=== PATIENT | female | born 1975 ===

== ENCOUNTER 2021-07-06 20:24 | Emergency (ER) | payer OTHER ==
[2021-07-06] MEDS ORDERED: IBUPROFEN 400 MG TAB ONE (23:10)
--- NOTE | 2021-07-07 00:02 | ER ---
Nurse's Notes [facility] Name: Josephine Gong Age: 45 yrs Sex: Female : 1975 Arrival Date: 07/06/2021 Time: 20:28 Bed 11 Private MD: Diagnosis: Presentation: 07/06 21:08 Chief complaint: Patient states: I was trying to climb into the back of my truck. I jb4 lost my footing and fell . My foot landed firmly on the ground and I feel like I jammed my knee. Coronavirus screen: At this time, the client does not indicate any symptoms associated with coronavirus-19. Ebola Screen: No symptoms or risks identified at this time. Initial Sepsis Screen: Does the patient meet any 2 criteria? No. Patient's initial sepsis screen is negative. Does the patient have a suspected source of infection? No. Patient's initial sepsis screen is negative. Risk Assessment: Do you want to hurt yourself or someone else? Patient reports no desire to harm self or others. Onset of symptoms was July 06, 2021. Transition of care: patient was not received from another setting of care. 21:08 Method Of Arrival: Wheelchair jb4 21:08 Acuity: ALYSON 4 jb4 Historical: - Allergies: 21:10 No Known Allergies; jb4 - Home Meds: 21:10 None [Active]; jb4 - PMHx: 21:10 None; jb4 - PSHx: 21:10 None; jb4 - Immunization history:: Adult Immunizations up to date. - Social history:: Smoking status: Reported history of juuling and/or vaping. Patient uses alcohol, occasionally. Patient/guardian denies using street drugs. Screenin:54 Abuse screen: Denies threats or abuse. Denies injuries from another. Nutritional lp1 screening: No deficits noted. Tuberculosis screening: No symptoms or risk factors identified. Fall Risk None identified. Assessment: 21:50 General: Appears uncomfortable, Behavior is appropriate for age. Pain: Complains of lp1 pain in lateral aspect of right knee and medial aspect of right knee Aggravated by weight bearing. Neuro: Level of Consciousness is awake, alert, obeys commands. Cardiovascular: Patient's skin is warm and dry. Respiratory: Respiratory effort is even, unlabored. GI: No signs and/or symptoms were reported involving the gastrointestinal system. : No signs and/or symptoms were reported regarding the genitourinary system. EENT: No signs and/or symptoms were reported regarding the EENT system. Derm: Skin is pink, warm \T\ dry. Musculoskeletal: Circulation, motion, and sensation intact. Reports pain in lateral aspect of right knee and medial aspect of right knee. 23:59 Reassessment: Pt verbalizes frustration of her x-ray not being performed. X-ray called, jb4 X-ray verbalized intent to see this pt next. Tried to inform pt that x-ray was on the way. Pt left ED via wheelchair with significant other. Vital Signs: 21:08 BP 112 / 52; Pulse 66; Resp 18; Temp 98.6(TE); Pulse Ox 100% on R/A; Weight 68.04 kg jb4 (R); Height 5 ft. 1 in. (154.94 cm) (R); Pain 7/10; 21:08 Body Mass Index 28.34 (68.04 kg, 154.94 cm) jb4 ED Course: 20:28 Patient arrived in ED. ja2 21:10 Triage completed. jb4 21:10 Arm band placed on right wrist. jb4 21:50 Sonal Garcia RN is Primary Nurse. lp1 21:54 Patient has correct armband on for positive identification. lp1 22:47 Yoan Montero PA is PHCP. cp 22:47 Anant Gerard MD is Attending Physician. cp 23:59 No provider procedures requiring assistance completed. Patient did not have IV access jb4 during this emergency room visit. Administered Medications: 23:10 Drug: Ibuprofen 800 mg Route: PO; lp1 Medication: 21:54 VIS not applicable for this client. lp1 Outcome: 23:59 Eloped from patient exam room, after seeing physician Time discovered patient gone: June jb4 2021 at 00:01 23:59 Condition: unchanged 07/07 00:01 Patient left the ED. jb4 Signatures: Sonal Garcia, RN RN lp1 Yoan Montero PA PA cp Bryson, James, RN RN jb4 Leena Rodriguez ja2 Corrections: (The following items were deleted from the chart) 07/06 21:54 21:50 Pain: Complains of pain in lateral aspect of right knee and medial aspect of lp1 right knee lp1
--- NOTE | 2021-07-07 00:02 | EDPHYS ---
Physician Documentation [facility] Name: Josephine Gong Age: 45 yrs Sex: Female : 1975 Arrival Date: 07/06/2021 Time: 20:28 Bed 11 Private MD: ED Physician Anant Gerard HPI: 07/06 23:15 This 45 yrs old Female presents to ER via Wheelchair with complaints of Knee Injury. cp 23:15 The patient presents with pain, that is acute. The complaints affect the lateral aspect cp of right knee, lateral aspect of right foot and posterior aspect of right knee. 23:15 Context: resulted from a mis-step, while stepping out of back of truck, patient reports cp she lost her balance and heel struck ground with stiffened right leg. Onset: The symptoms/episode began/occurred today. Historical: - Allergies: 21:10 No Known Allergies; jb4 - Home Meds: 21:10 None [Active]; jb4 - PMHx: 21:10 None; jb4 - PSHx: 21:10 None; jb4 - Immunization history:: Adult Immunizations up to date. - Social history:: Smoking status: Reported history of juuling and/or vaping. Patient uses alcohol, occasionally. Patient/guardian denies using street drugs. ROS: 23:20 Constitutional: Negative for body aches, chills, fever, poor PO intake. cp 23:20 Neck: Negative for pain with movement, pain at rest. cp 23:20 Back: Negative for pain at rest, pain with movement. 23:20 MS/extremity: Positive for pain, tenderness, of the posterior aspect of right knee and proximal fibula and right heel. 23:20 Skin: Negative for cellulitis, rash. 23:20 Neuro: Negative for altered mental status, headache, weakness. 23:20 All other systems are negative. Exam: 23:25 Constitutional: The patient appears in no acute distress, alert, awake, non-toxic, well cp developed, well nourished. 23:25 Head/Face: Normocephalic, atraumatic. cp 23:25 Cardiovascular: Rate: normal, Pulses: Pulses are 2+ in right dorsalis pedis artery. 23:25 Respiratory: the patient does not display signs of respiratory distress, Respirations: normal, no use of accessory muscles, no retractions, labored breathing, is not present. 23:25 Abdomen/GI: Exam negative for discomfort, distension, guarding, Inspection: abdomen appears normal. 23:25 Back: pain, is absent, ROM is normal. 23:25 Musculoskeletal/extremity: Extremities: grossly normal except: noted in the posterior knee and proximal fibula: pain, tenderness, There is no evidence of decreased ROM, deformity, noted in the right heel: pain, tenderness, no evidence of deformity, the right foot and right leg Sensation intact. 23:25 Skin: cellulitis, is not appreciated, no rash present. Vital Signs: 21:08 BP 112 / 52; Pulse 66; Resp 18; Temp 98.6(TE); Pulse Ox 100% on R/A; Weight 68.04 kg jb4 (R); Height 5 ft. 1 in. (154.94 cm) (R); Pain 7/10; 21:08 Body Mass Index 28.34 (68.04 kg, 154.94 cm) jb4 MDM: 23:01 Patient medically screened. cp Administered Medications: 23:10 Drug: Ibuprofen 800 mg Route: PO; lp1 Disposition: 07/07 05:39 Co-signature as Attending Physician, Anant Gerard MD. [email or web address] Disposition Summary: 07/07/21 00:01 Eloped Disposition: after being seen by provider jb Reason: (see nurse's notes) [facility] Signatures: Dispatcher [employer] EDMS Sonal Garcia RN RN lp1 Yoan Montero PA PA cp Marc Oliver RN RN jb4 Anant Gerard MD MD [email or web address] Corrections: (The following items were deleted from the chart) 07/06 23:17 22:25 Knee Right 3 View+RAD.[email or web address] ordered. EDWI EDMS
[2021-07-07 00:16] VITALS: BP 112/52; TEMP 98.6; O2SAT 100
== END 2021-07-07 00:01 | disposition left against medical advice (07) ==
LOC: ER 20:24
DX: S89.91XA Unspecified injury of right lower leg, initial encounter (principal); W17.89XA Other fall from one level to another, initial encounter; Y93.9 Activity, unspecified; Y92.9 Unspecified place or not applicable; Z53.29 Procedure and treatment not carried out because of patient's decision for other reasons
CPT/HCPCS: 99282